=== PATIENT | female | born 1975 | race Caucasian/White ===

== ENCOUNTER 2016-12-12 12:34 | Outpatient (CLI) | payer OTHER ==
[2016-12-12 20:14] LABS: BASOPHILS % (AUTO) 0.2 %; EOSINOPHILS % (AUTO) 0.5 %; HCT - HEMATOCRIT 36.7 % (37.0-47.0); HGB - HEMOGLOBIN 11.4 g/dL (12.0-16.0); LYMPHOCYTES # (AUTO) 1.3 10^3/uL (1.5-3.5); LYMPHOCYTES % (AUTO) 23.9 %; MEAN CORPUSCULAR HEMOGLOBIN 23.3 pg (27.0-31.0); MEAN CORPUSCULAR HGB CONC 31.1 g/dL (32.0-36.0); MEAN CORPUSCULAR VOLUME 74.9 fL (81.0-99.0); MEAN PLATELET VOLUME 10.6 fL (7.9-10.8); MONOCYTES # (AUTO) 0.3 10^3/uL (0.0-1.0); MONOCYTES % (AUTO) 5.8 %; NEUTROPHILS # (AUTO) 3.8 10^3/uL (1.5-6.6); NEUTROPHILS % (AUTO) 69.6 %; NUCLEATED RED BLOOD CELLS AUTO 0.1 /100WBC; RED CELL DISTRIBUTION WIDTH 16.5 % (12.0-15.0); UNCORRECTED WHITE BLOOD COUNT 5.4 x10^3/uL; WHITE BLOOD COUNT 5.4 x10^3/uL (4.8-10.8)
[2016-12-12 20:36] LABS: ALBUMIN/GLOBULIN RATIO 1.2 (1.0-2.2); BILIRUBIN,TOTAL 0.4 mg/dL (0.2-1.0); BUN - BLOOD UREA NITROGEN 12 mg/dL (6-20); CALCIUM 8.7 mg/dL (8.5-10.3); CARBON DIOXIDE - CO2 26 mmol/L (21-32); CHLORIDE 105 mmol/L (101-111); CHOL/HDL RATIO 3.9 (<4.4); CHOLESTEROL 196 mg/dL; CREATININE 0.7 mg/dL (0.4-1.0); GFR - MDRD 91 (>89); GLUCOSE 90 mg/dL (70-100); HDL CHOLESTEROL 50 mg/dL; POTASSIUM 3.9 mmol/L (3.5-5.0); SODIUM 136 mmol/L (135-145); TOTAL PROTEIN 7.4 g/dL (6.7-8.2)
[2016-12-12 21:01] LABS: LDL/HDL RATIO 2.2 (<4.4); TRIGLYCERIDES 169 mg/dL; VLDL CHOLESTEROL 34 mg/dL
== END 2016-12-12 12:35 | disposition home or self-care (01) ==
LOC: LAB.WCP 12:34
PROVIDERS: ATTEND Physician Assistant Medical
DX: Z00.00 Encounter for general adult medical examination without abnormal findings (principal)
CPT/HCPCS: 36415; 80053; 80061; 84443; 85025

== ENCOUNTER 2018-03-25 08:00 | Outpatient (CLI) | payer OTHER ==
[2018-03-25 13:58] LABS: BASOPHILS % (AUTO) 0.1 %; EOSINOPHILS # (AUTO) 0.1 10^3/uL (0.0-0.7); EOSINOPHILS % (AUTO) 1.4 %; HGB - HEMOGLOBIN 11.2 g/dL (12.0-16.0); LYMPHOCYTES # (AUTO) 1.1 10^3/uL (1.5-3.5); LYMPHOCYTES % (AUTO) 30.3 %; MEAN CORPUSCULAR HEMOGLOBIN 24.2 pg (27.0-31.0); MEAN CORPUSCULAR HGB CONC 32.5 g/dL (32.0-36.0); MEAN CORPUSCULAR VOLUME 74.4 fL (81.0-99.0); MEAN PLATELET VOLUME 10.6 fL (7.9-10.8); MONOCYTES # (AUTO) 0.3 10^3/uL (0.0-1.0); MONOCYTES % (AUTO) 7.9 %; NEUTROPHILS # (AUTO) 2.2 10^3/uL (1.5-6.6); NEUTROPHILS % (AUTO) 60.3 %; PLT - PLATELET COUNT 185 10^3/uL (130-450); RED BLOOD COUNT 4.64 10^6/uL (4.20-5.40); RED CELL DISTRIBUTION WIDTH 16.8 % (12.0-15.0); WHITE BLOOD COUNT 3.7 x10^3/uL (4.8-10.8)
[2018-03-25 14:13] LABS: ALBUMIN 3.9 g/dL (3.2-5.5); ALBUMIN/GLOBULIN RATIO 1.2 (1.0-2.2); ALKALINE PHOSPHATASE 53 IU/L (42-121); ALT ALANINE AMINOTRANSFERASE 17 IU/L (10-60); AST ASPARTATE AMINOTRANSFERASE 15 IU/L (10-42); BILIRUBIN,TOTAL 0.4 mg/dL (0.2-1.0); BUN - BLOOD UREA NITROGEN 15 mg/dL (6-20); CARBON DIOXIDE - CO2 24 mmol/L (21-32); CHLORIDE 105 mmol/L (101-111); CHOL/HDL RATIO 3.9 (<4.4); CHOLESTEROL 217 mg/dL; CREATININE 0.7 mg/dL (0.4-1.0); GFR - MDRD 90 (>89); GLUCOSE 94 mg/dL (70-100); HDL CHOLESTEROL 55 mg/dL; LDL CHOLESTEROL,CALCULATED 137 mg/dL; LDL/HDL RATIO 2.5 (<4.4); SODIUM 138 mmol/L (135-145); TOTAL PROTEIN 7.2 g/dL (6.7-8.2); VLDL CHOLESTEROL 25 mg/dL
== END 2018-03-25 08:01 | disposition home or self-care (01) ==
LOC: LAB.WCP 08:00
PROVIDERS: ATTEND Physician Assistant Medical
DX: Z00.00 Encounter for general adult medical examination without abnormal findings (principal); E78.5 Hyperlipidemia, unspecified; E55.9 Vitamin D deficiency, unspecified; K21.9 Gastro-esophageal reflux disease without esophagitis
CPT/HCPCS: 36415; 80053; 80061; 82306; 83721; 84443; 85025

== ENCOUNTER 2018-07-16 10:54 | Outpatient (CLI) | payer OTHER ==
--- NOTE | 2018-07-16 12:05 | XRAY Report ---
Reason: COUGH WITH FEVER Procedure Date: 07/16/2018 Accession Number: [id number] / [id number] Procedure: WCP - Chest 2 View X-Ray CPT Code: 96871 FULL RESULT: EXAM: CHEST RADIOGRAPHY EXAM DATE: 07/16/2018 11:12 AM. CLINICAL HISTORY: COUGH WITH FEVER. COMPARISON: 08/11/2014 TECHNIQUE: 2 views. FINDINGS: Lungs/Pleura: No focal opacities evident. No pleural effusion. No pneumothorax. Normal volumes. Mediastinum: Heart and mediastinal contours are unremarkable. Other: Negative bony structures. Surgical clips upper abdomen. IMPRESSION: Normal 2-view chest radiography. RAD[facility]
== END 2018-07-16 10:55 | disposition home or self-care (01) ==
LOC: DI.WCP 10:54
PROVIDERS: ATTEND Family Medicine
DX: R05 Cough (principal); R50.9 Fever, unspecified
CPT/HCPCS: 71046; 87275; 87276

== ENCOUNTER 2018-07-16 11:18 | Outpatient (CLI) | payer OTHER | END 2018-07-16 23:59 | disposition home or self-care (01) | LOC: LAB.R 11:18 | PROVIDERS: ATTEND Family Medicine | DX: R05 Cough (principal) | CPT/HCPCS: 87275; 87276 ==

== ENCOUNTER 2019-09-17 07:50 | Outpatient (CLI) | payer OTHER ==
[2019-09-17 12:07] LABS: % IRON SATURATION 9 % (20-50); ALBUMIN 3.9 g/dL (3.2-5.5); ALBUMIN/GLOBULIN RATIO 1.1 (1.0-2.2); ALKALINE PHOSPHATASE 54 IU/L (42-121); ALT ALANINE AMINOTRANSFERASE 14 IU/L (10-60); AST ASPARTATE AMINOTRANSFERASE 17 IU/L (10-42); BILIRUBIN,TOTAL 0.4 mg/dL (0.2-1.0); BUN - BLOOD UREA NITROGEN 13 mg/dL (6-20); CALCIUM 8.4 mg/dL (8.5-10.3); CARBON DIOXIDE - CO2 26 mmol/L (21-32); CHLORIDE 103 mmol/L (101-111); CHOL/HDL RATIO 4.1 (<4.4); CHOLESTEROL 206 mg/dL; CREATININE 0.8 mg/dL (0.4-1.0); GLUCOSE 93 mg/dL (70-100); HDL CHOLESTEROL 50 mg/dL; IRON 33 ug/dL (28-170); LDL CHOLESTEROL,CALCULATED 127 mg/dL; LDL/HDL RATIO 2.5 (<4.4); SODIUM 135 mmol/L (135-145); TOTAL IRON BINDING CAPACITY 349 ug/dL (250-450); TOTAL PROTEIN 7.4 g/dL (6.7-8.2); TRANSFERRIN 249 mg/dL (192-382); VLDL CHOLESTEROL 29 mg/dL
[2019-09-17 12:17] LABS: FERRITIN 3.2 ng/mL (11.0-306.8)
[2019-09-17 12:22] LABS: EOSINOPHILS # (AUTO) 0.1 10^3/uL (0.0-0.7); EOSINOPHILS % (AUTO) 1.7 %; HGB - HEMOGLOBIN 11.7 g/dL (12.0-16.0); LYMPHOCYTES # (AUTO) 1.3 10^3/uL (1.5-3.5); LYMPHOCYTES % (AUTO) 30.7 %; MEAN CORPUSCULAR HEMOGLOBIN 24.2 pg (27.0-31.0); MEAN CORPUSCULAR HGB CONC 29.9 g/dL (32.0-36.0); MEAN CORPUSCULAR VOLUME 80.8 fL (81.0-99.0); MEAN PLATELET VOLUME 13.5 fL (7.9-10.8); MONOCYTES # (AUTO) 0.4 10^3/uL (0.0-1.0); MONOCYTES % (AUTO) 8.3 %; NEUTROPHILS # (AUTO) 2.5 10^3/uL (1.5-6.6); NEUTROPHILS % (AUTO) 59.1 %; PLT - PLATELET COUNT 187 10^3/uL (130-450); RED BLOOD COUNT 4.84 10^6/uL (4.20-5.40); WHITE BLOOD COUNT 4.2 x10^3/uL (4.8-10.8)
== END 2019-09-17 23:59 | disposition home or self-care (01) ==
LOC: LAB.WCP 07:50
PROVIDERS: ATTEND Physician Assistant Medical
DX: E78.5 Hyperlipidemia, unspecified (principal); R00.2 Palpitations; K76.0 Fatty (change of) liver, not elsewhere classified; D50.9 Iron deficiency anemia, unspecified; E03.9 Hypothyroidism, unspecified
CPT/HCPCS: 36415; 80053; 80061; 82607; 82728; 83540; 83721; 84443; 84466; 85025

== ENCOUNTER 2020-02-10 09:26 | Outpatient (CLI) | payer OTHER ==
--- NOTE | 2020-02-10 10:09 | XRAY Report ---
PROCEDURE: Chest 2 View X-Ray INDICATIONS: Preoperative risk assessment TECHNIQUE: 2 view(s) of the chest. COMPARISON: None. FINDINGS: Surgical changes and devices: None. Lungs and pleura: No pleural effusions or pneumothorax. Lungs are clear. Mediastinum: Mediastinal contours are normal. Heart size is normal. Bones and chest wall: No suspicious bony abnormalities. Soft tissues appear unremarkable. IMPRESSION: No acute cardiopulmonary process demonstrated. Reviewed by: Frankie Head MD on 02/10/2020 10:07 AM PDT Approved by: Frankie Head MD on 02/10/2020 10:07 AM PDT Station ID: [id number]
== END 2020-02-10 09:27 | disposition home or self-care (01) ==
LOC: LAB 09:26
PROVIDERS: ATTEND Surgery
DX: Z01.818 Encounter for other preprocedural examination (principal); D17.1 Benign lipomatous neoplasm of skin and subcutaneous tissue of trunk; Z20.828 Contact with and (suspected) exposure to other viral communicable diseases
CPT/HCPCS: 71046

== ENCOUNTER 2020-02-14 11:56 | Day surgery (SDC) | payer OTHER ==
[2020-02-14] MEDS ORDERED: LIDOCAINE-MPF 2% 5 ML VIAL IM ONE (11:57)
[2020-02-14] MEDS ORDERED: fentaNYL 100 MCG/2 ML VIAL IVP ONE (11:57)
[2020-02-14] MEDS ORDERED: ONDANSETRON 4 MG/2 ML VIAL IVP ONE (11:57)
[2020-02-14] MEDS ORDERED: DEXAMETHASONE 4 MG/ML VIAL IVP ONE (11:57)
[2020-02-14] MEDS ORDERED: PROPOFOL 200 MG/20 ML VIAL IVP ONE (11:57)
[2020-02-14] MEDS ORDERED: LACTATED RINGERS 1,000 ML IV ONE ×2 (12:21→15:22)
[2020-02-14] MEDS ORDERED: CEFAZOLIN SODIUM IN 0.9 % NACL 2 GM/100 ML BAG IV ONE (12:55)
[2020-02-14 12:57] LABS: HCG UR QUAL NEGATIVE
[2020-02-14] MEDS ORDERED: MORPHINE 2 MG/ML CARPUJECT IVP PRN (13:24)
[2020-02-14] MEDS ORDERED: ATROPINE ABBOJECT 1 MG/10 ML SYRINGE IVP PRN (13:24)
[2020-02-14] MEDS ORDERED: ONDANSETRON 4 MG/2 ML VIAL IVP PRN ×2 (13:24→15:28)
[2020-02-14] MEDS ORDERED: fentaNYL 100 MCG/2 ML VIAL IVP PRN (13:24)
[2020-02-14] MEDS ORDERED: ePHEDrine 50 MG/ML VIAL IVP PRN (13:24)
[2020-02-14] MEDS ORDERED: METOCLOPRAMIDE 10 MG/2 ML VIAL IVP PRN (13:24)
[2020-02-14] MEDS ORDERED: HYDROmorphone 0.5 MG/0.5 ML SYRINGE IVP PRN (13:24)
[2020-02-14] MEDS ORDERED: NALOXONE 0.4 MG/ML VIAL IVP PRN (13:24)
--- NOTE | 2020-02-14 13:27 | ANESTHESIA ---
Pre-Anesthesia VS, & Labs - Diagnosis lipoma right back - Procedure excision lipoma right back Vital Signs: Temp Pulse Resp BP Pulse Ox 36.5 C 86 20 153/95 H 98 02/14/20 12:33 02/14/20 12:33 02/14/20 12:33 02/14/20 12:33 02/14/20 12:33 Height 5 ft 6 in Weight (kg) 119.1 kg - NPO >8 hours - Is Patient ?: No Home Medications and Allergies Home Medications: Ambulatory Orders Escitalopram [Lexapro] 10 mg PO DAILY 02/08/20 Levothyroxine Sodium 50 mcg PO DAILY 02/08/20 Cholecalciferol (Vitamin D3) [Vitamin D] 2,000 unit PO DAILY 11/14/14 Omeprazole 20 mg PO BID 11/14/14 lisinopriL [Lisinopril] 10 mg PO DAILY 11/14/14 Escitalopram [Lexapro] 10 mg PO DAILY 02/08/20 Levothyroxine Sodium 50 mcg PO DAILY 02/08/20 Allergies/Adverse Reactions: Allergies Allergy/AdvReac Type Severity Reaction Status Date / Time hydrocodone bitartrate * AdvReac Intermediate Nausea/Somn Verified 11/14/14 08:17 [From Vicodin] olence Anes History & Medical History - Anesthetic History Anesthesia Complications: reports: Slow wake-up - Medical History Cardiovascular: reports: Hypertension, Other Pulmonary: reports: None Gastrointestinal: reports: GERD Urinary: reports: None Musculoskeletal: reports: Chronic back pain Endocrine/Autoimmune: reports: HyPOthyroidism Skin: reports: None - Surgical History General: Cholecystectomy Gynecologic: section, LEEP (Cervical surgery) Orthopedic: Other Exam General: Alert Dental: WNL Mouth Opening: Greater than 4 Fingerbreadths Neck Mobility: Normal Mallampati classification: I Thyromental Distance: greater than 6 cm Respiratory: Lungs clear Cardiovascular: Regular rate, Normal S1, Normal S2 Plan Anesthesia Type: General Consent for Procedure(s) Verified and Reviewed: Yes Code Status: Attempt Resuscitation ASA classification: 2-Mild systemic disease Is this case an emergency?: No
[2020-02-14] MEDS ORDERED: LIDOCAINE 1%-EPI 1:100000 20 ML MDV ONE (13:46)
[2020-02-14] MEDS ORDERED: BUPIVACAINE 0.5% PF 30 ML VIAL ONE (13:47)
[2020-02-14] MEDS ORDERED: LACTATED RINGERS 1,000 ML IV SCH (14:00)
[2020-02-14] MEDS ORDERED: LIDOCAINE 1%-EPI 1:100000 20 ML MDV SUBQ ONE ×2 (14:32)
[2020-02-14] MEDS ORDERED: BUPIVACAINE 0.5%-EPI 1:200000 PF 30 ML VIAL SUBQ ONE ×2 (14:32)
--- NOTE | 2020-02-14 15:24 | OPERATIVE REPORT ---
Operative Report - General Procedure Date: 02/14/20 Planned Procedure: Excision of painful mid back lipoma Pre-Op Diagnosis: Large, painful, mid back lipoma Procedure Performed: Excision of lipoma, mid back Post Op Diagnosis: Large, painful, mid back lipom - Procedure Note Primary Surgeon: Elida Anesthesia Provider: GUALBERTO Rosa Anesthesia Technique: General LMA, Local Pathology: 6 x 4 cm lipoma Estimated Blood Loss (mL): 5 Findings: Fluffy, poorly circumscribed and multilobulated mass densely adherent to paraspinous muscle. Complications: None apparent - Other Other Information/Narrative: After obtaining informed consent, the patient is brought to the operating room and placed in the supine position on a beanbag on the operating table. Following successful induction of general anesthesia, the patient was rolled to the left lateral decubitus position exposing the area of concern. All bony prominences were padded and care was taken to be sure there were no untreated pressure points. The back was then prepped and draped in the standard surgical fashion. A timeout was held per scope protocol. All elements of the surgical safety checklist were followed before, during, and after the procedure. We began by infiltrating a mixture of local anesthetics directly over the palpable mass in the mid back and to the right of the palpable spine. We then created a vertical incision approximately 7 cm long and carried through the skin and subcutaneous tissue. We immediately encountered a multilobulated, pale and fluffy appearing mass consistent with a lipoma. It was fairly poorly circumscribed. It was also notably densely adherent to the underlying paraspinous muscle. Excision was carried out sharply. The specimen measured 6 x 4 cm once it was removed. The wound was then checked for hemostasis. This was obtained with Bovie cautery applied to the neurovascular bundle. Wound was then checked once again and then closed in 2 layers with Vicryl and Monocryl sut ure. All sponge, needle, and instrument counts were correct at the conclusion of the case. The patient was allowed awaken from anesthesia without difficulty and taken to the postanesthesia care unit in good condition.
[2020-02-14] MEDS ORDERED: oxyCODONE 5 MG TABLET PO PRN (15:28)
[2020-02-14] MEDS ORDERED: ACETAMINOPHEN 325 MG TABLET PO PRN (15:28)
[2020-02-14] MEDS ORDERED: IBUPROFEN 600 MG TABLET PO PRN (15:28)
[2020-02-14 16:12] VITALS: BP 149/70
== END 2020-02-14 11:57 | disposition home or self-care (01) ==
LOC: SDS 11:56
PROVIDERS: ATTEND Surgery
PROC: 0JB70ZZ Excision of Back Subcutaneous Tissue and Fascia, Open Approach (ICD-10-PCS; principal; 2020-02-14 13:00)
DX: D17.1 Benign lipomatous neoplasm of skin and subcutaneous tissue of trunk (principal); I10 Essential (primary) hypertension; E66.9 Obesity, unspecified; Z68.41 Body mass index [BMI] 40.0-44.9, adult
CPT/HCPCS: 21933; 81025; A9270; J0690; J7120

== ENCOUNTER 2020-07-19 06:40 | Outpatient (CLI) | payer OTHER ==
--- NOTE | 2020-07-19 11:15 | Ultrasound Report ---
PROCEDURE: Head or Neck Soft Tissue INDICATIONS: SUPRACLAVICULAR LYMPHADENOPATHY TECHNIQUE: Real time scanning was performed of the neck region of interest, with image documentation . COMPARISON: Chest plain film 02/10/2020. FINDINGS: Targeted scanning to the area of current clinical concern. At the area of concern there is a lymph node measuring up to 1.0 x 0.8 x 0.6 cm. IMPRESSION: Single lymph node measuring 6 x 8 x 10 mm, at the site of current clinical concern. If unusual tenderness or continued growth of this structure develops follow-up by contrast-enhanced CT o r MR scanning may be warranted. Reviewed by: Harinder Tomas MD on 07/19/2020 11:13 AM PST Approved by: Harinder Tomas MD on 07/19/2020 11:13 AM PST Station ID: [id number]
== END 2020-07-19 06:41 | disposition home or self-care (01) ==
LOC: DI 06:40
PROVIDERS: ATTEND Nurse Practitioner Family
DX: R59.0 Localized enlarged lymph nodes (principal)

== ENCOUNTER 2020-07-27 16:08 | Outpatient (CLI) | payer OTHER ==
[2020-07-27 16:20] LABS: CALCIUM 8.9 mg/dL (8.5-10.3); CREATININE 0.7 mg/dL (0.4-1.0); POTASSIUM 3.9 mmol/L (3.5-5.0)
[2020-07-27] MEDS ORDERED: IOVERSOL 320 100 ML VIAL IVP ONE ×2 (16:53→18:41)
--- NOTE | 2020-07-27 18:21 | CT Report ---
PROCEDURE: SOFT TISSUE NECK W INDICATIONS: SUPRACLAVICULAR CERVICAL LYMPHADENOPATHY CONTRAST: 100 cc Isovue 320 TECHNIQUE: After the administration of intravenous contrast, 3.0 mm axial sections acquired from the sella to th e aortic arch. Additional oblique axial 3.0 mm sections acquired through the pharynx. 3 mm thick co jospeh reformats were generated. For radiation dose reduction, the following was used: automated exp osure control, adjustment of mA and/or kV according to patient size. COMPARISON: Correlation is made with the prior neck ultrasound, 07/19/2020. FINDINGS: Image quality: Excellent. Lymph nodes: At the area of clinical concern within the right supraclavicular region, there is a none nlarged, normal-appearing lymph node seen, as on series 3 image 73 measuring 9 x 6 mm. An additional borderline prominent lymph nodes can be seen within the same region, as on series 3 image 84 measurin g 12 x 7 mm. Borderline prominent lymph nodes are also seen elsewhere within the neck, without lymph node enlargement. Vessels: Visualized vasculature appears patent. Neck spaces: The oropharynx, nasopharynx, and pharynx demonstrate no mucosal lesions. The vocal cor ds, false vocal cords, pyriform sinuses, epiglottis, vallecula, and tongue base all appear normal. E xtramucosal spaces appear unremarkable. Glands: The parotid and submandibular glands appear normal. The thyroid is normal in size. Miscellaneous: Visualized brain and orbits appear normal. Lung apices appear clear. Superficial so ft tissues appear normal. Bones: No suspicious bony lesions. Visualized sinuses and mastoids appear unremarkable. IMPRESSION: There are 2 borderline prominent lymph nodes seen at the area of clinical concern within the right pedersen praclavicular region. Elsewhere within the neck, borderline prominent lymph nodes are also seen, yet without eulalia enlargem ent. If these lymph nodes do not resolve clinically, please consider a follow-up ultrasound or CT in 6-8 w eeks. Reviewed by: Ramses Tejada MD on 07/27/2020 5:20 PM [place] Approved by: Ramses Tejada MD on 07/27/2020 5:20 PM [place] Station ID: [id number]
== END 2020-07-27 16:09 | disposition home or self-care (01) ==
LOC: LAB 16:08
PROVIDERS: ATTEND Physician Assistant Medical
DX: I10 Essential (primary) hypertension (principal); R59.0 Localized enlarged lymph nodes; R00.2 Palpitations
CPT/HCPCS: 36415; 70491; 80048; Q9967

== ENCOUNTER 2021-04-04 15:10 | Outpatient (CLI) | payer OTHER, BC ==
--- NOTE | 2021-04-04 16:56 | Ultrasound Report ---
PROCEDURE: Head or Neck Soft Tissue INDICATIONS: THYROMEGALY TECHNIQUE: Real time scanning was performed of the neck region of interest, with image documentation . COMPARISON: None. FINDINGS: Right lobe of thyroid measures 5.4 x 2.9 x 2.4 cm. The left lobe of the thyroid measures 5. 2 x 2.1 x 1.7 cm. Isthmus measures 3 mm. Both lobes of thyroid of the straight heterogeneous echotexture without discre te nodule. IMPRESSION: Heterogeneous, enlarged thyroid. Please correlate clinically and with biochemical data. Reviewed by: Torin Liang MD on 04/04/2021 4:55 PM PDT Approved by: Torin Liang MD on 04/04/2021 4:55 PM PDT Station ID: [id number]
== END 2021-04-04 15:11 | disposition home or self-care (01) ==
LOC: DI 15:10
PROVIDERS: ATTEND Physician Assistant Medical
DX: E01.0 Iodine-deficiency related diffuse (endemic) goiter (principal)

== ENCOUNTER → 2021-05-20 | Outpatient (CLI) | payer OTHER, BC ==
--- NOTE | 2021-05-20 16:01 | XRAY Report ---
PROCEDURE: Knee 3 View RT INDICATIONS: ATRAUMATIC RIGHT KNEE PAIN TECHNIQUE: 3 views of the right knee(s) were acquired. COMPARISON: None. FINDINGS: Bones: No fractures or dislocations. Degenerative changes with tricompartmental osteophytes. Mild me dial joint space narrowing. No suspicious bony lesions. Soft tissues: There is a suprapatellar joint effusion. No suspicious soft tissue calcifications. IMPRESSION: 1. Mild tricompartmental degenerative changes. 2. Suprapatellar joint effusion possibly due to internal derangement. Consider MRI of the right knee. . Reviewed by: Archie Heart on 05/20/2021 3:00 PM LESLYE Approved by: Archie Heart on 05/20/2021 3:00 PM [facility] Station ID: [id number]
== END ==
LOC: DI.N 12:42
PROVIDERS: ATTEND Physician Assistant Medical
DX: S83.91XA Sprain of unspecified site of right knee, initial encounter (principal); M17.11 Unilateral primary osteoarthritis, right knee; M25.461 Effusion, right knee

== ENCOUNTER 2021-08-24 07:39 | Outpatient (CLI) | payer OTHER, BC ==
[2021-08-24 08:03] LABS: EOSINOPHILS # (AUTO) 0.1 10^3/uL (0.0-0.7); EOSINOPHILS % (AUTO) 1.8 %; HGB - HEMOGLOBIN 10.8 g/dL (12.0-16.0); LYMPHOCYTES # (AUTO) 1.4 10^3/uL (1.5-3.5); LYMPHOCYTES % (AUTO) 30.7 %; MEAN CORPUSCULAR HEMOGLOBIN 21.7 pg (27.0-31.0); MEAN CORPUSCULAR VOLUME 72.4 fL (81.0-99.0); MONOCYTES # (AUTO) 0.4 10^3/uL (0.0-1.0); MONOCYTES % (AUTO) 8.6 %; NEUTROPHILS # (AUTO) 2.6 10^3/uL (1.5-6.6); NEUTROPHILS % (AUTO) 58.4 %; PLT - PLATELET COUNT 210 10^3/uL (130-450); RED BLOOD COUNT 4.97 10^6/uL (4.20-5.40); WHITE BLOOD COUNT 4.4 x10^3/uL (4.8-10.8)
[2021-08-24 08:23] LABS: ALBUMIN 4.2 g/dL (3.2-5.5); ALBUMIN/GLOBULIN RATIO 1.6 (1.0-2.2); ALKALINE PHOSPHATASE 49 IU/L (42-121); ALT ALANINE AMINOTRANSFERASE 15 IU/L (10-60); AST ASPARTATE AMINOTRANSFERASE 15 IU/L (10-42); BILIRUBIN,TOTAL 0.4 mg/dL (0.2-1.0); BUN - BLOOD UREA NITROGEN 11 mg/dL (6-20); CALCIUM 8.4 mg/dL (8.5-10.3); CARBON DIOXIDE - CO2 23 mmol/L (21-32); CHLORIDE 101 mmol/L (101-111); CHOL/HDL RATIO 3.4 (<4.4); CHOLESTEROL 201 mg/dL; CREATININE 0.7 mg/dL (0.4-1.0); GFR - MDRD 89 (>89); GLUCOSE 103 mg/dL (70-100); HDL CHOLESTEROL 60 mg/dL; LDL CHOLESTEROL,CALCULATED 123 mg/dL; LDL/HDL RATIO 2.1 (<4.4); POTASSIUM 3.9 mmol/L (3.5-5.0); SODIUM 136 mmol/L (135-145); TOTAL PROTEIN 6.9 g/dL (6.7-8.2); TRIGLYCERIDES 90 mg/dL; VLDL CHOLESTEROL 18 mg/dL
[2021-08-24 08:34] LABS: THYROID STIMULATING HORMONE 4.23 uIU/mL (0.34-5.60)
== END 2021-08-24 07:40 | disposition home or self-care (01) ==
LOC: LAB 07:39
PROVIDERS: ATTEND Physician Assistant Medical
DX: E78.5 Hyperlipidemia, unspecified (principal); E03.9 Hypothyroidism, unspecified; D50.9 Iron deficiency anemia, unspecified
CPT/HCPCS: 36415; 80053; 80061; 83721; 84443; 85025

== ENCOUNTER 2022-03-12 20:32 | Emergency (ER) | payer BC ==
[2022-03-12 21:03] VITALS: BP 179/95
--- NOTE | 2022-03-12 21:24 | ED Physician Documentation ---
History of Present Illness - Stated complaint Stated Complaint: HIGH BP - Chief complaint Chief Complaint: General - History obtained from History obtained from: Patient - History of Present Illness Timing: Prior to arrival - Additonal information Additional information: 47-year-old female with history of hypertension presents for evaluation of hypertension. Patient states that she is going on a cruise the end of the month with her family and she went to an [facility] to request a medication that would stop her menstrual cycle. She states that at the appointment her blood pressure was elevated and the physician there told her that with her blood pressure elevated she could not give her this medication. She started her on 2.5 mg of amlodipine and she went home. Patient states that she took her first dose of amlodipine tonight at 1800, however her blood pressure continued to be elevated. She was concerned because she has been told in the past that elevated blood pressure readings can lead to stroke and so presented for evaluation. Patient has 0 symptoms at this time, she denies headache, blurred vision, chest pain, shortness of breath, leg swelling, abdominal pain, any other complaints at this time. Review of Systems Ten Systems: 10 systems reviewed and negative Constitutional: denies: Fever, Chills Eyes: denies: Loss of vision, Decreased vision Cardiac: denies: Chest pain / pressure, Palpitations, Calf pain Respiratory: denies: Dyspnea, Cough, Wheezing GI: denies: Abdominal Pain, Nausea, Vomiting Musculoskeletal: denies: Neck pain, Back pain Neurologic: denies: Generalized weakness, Focal weakness, Headache PD PAST MEDICAL HISTORY - Past Medical History Cardiovascular: Hypertension, Other Respiratory: None Endocrine/Autoimmune: HyPOthyroidism GI: GERD : None HEENT: Chronic vision loss Psych: Depression, Anxiety Musculoskeletal: Chronic back pain Derm: None - Past Surgical History General: Cholecystectomy Ortho: Other /[employer]: section, LEEP (Cervical surgery) - Present Medications Home Medications: Ambulatory Orders Medication Instructions Recorded Confirmed Cholecalciferol (Vitamin D3) 2,000 unit PO DAILY 11/14/14 02/14/20 [Vitamin D] Omeprazole 20 mg PO BID 11/14/14 02/14/20 lisinopriL [Lisinopril] 10 mg PO DAILY 11/14/14 02/14/20 Escitalopram [Lexapro] 10 mg PO DAILY 02/08/20 02/14/20 Levothyroxine Sodium 50 mcg PO DAILY 02/08/20 02/14/20 Ondansetron Odt [Zofran Odt] 4 mg TL Q6H PRN #10 tablet 02/14/20 oxyCODONE [Roxicodone] 5 mg PO Q4-6H PRN #10 tablet 02/14/20 - Allergies Allergies/Adverse Reactions: Allergies Allergy/AdvReac Type Severity Reaction Status Date / Time hydrocodone bitartrate * AdvReac Intermediate Nausea/Somn Verified 03/12/22 21:03 [From Vicodin] olence PD ED PE NORMAL - Vitals Vital signs reviewed: Yes - General General: Alert and oriented X 3, No acute distress, Well developed/nourished - HEENT HEENT: Atraumatic, PERRL, EOMI - Cardiac Cardiac: RRR, Strong equal pulses - Respiratory Respiratory: No respiratory distress, Clear bilaterally - Abdomen Abdomen: Soft, Non tender, Non distended - Back Back: No CVA TTP, No spinal TTP - Derm Derm: Normal color, Warm and dry, No rash - Extremities Extremities: No deformity, Normal ROM s pain, No edema - Neuro Neuro: Alert and oriented X 3, account resolution expert 2-12 intact, Normal speech - Psych Psych: Normal mood, Normal affect Results - Vitals Vitals: Vital Signs - 24 hr 03/12/22 21:01 Temperature 36.0 C L Heart Rate 67 Respiratory 18 Rate Blood Pressure 179/95 H O2 Saturation 100 Oxygen O2 Source Room air PD MEDICAL DECISION MAKING - ED course Complexity details: reviewed results, re-evaluated patient, considered differential, d/w patient ED course: Patient with asymptomatic hypertension. Patient's medical list reviewed with her, she is on the minimum doses of both lisinopril and amlodipine, in addition she only took her first dose of amlodipine barely 2 hours prior to arrival. Patient has absolutely no signs or symptoms of endorgan damage, no indication for further work-up in the emergency department. Patient was counseled on how she may gradually increase the doses of her current antihypertensives. She was counseled to keep a blood pressure diary and to follow-up with her primary care physician for further management of her blood pressure. Patient expressed understanding of plan and is in agreement at this time. All questions answered at the time of discharge. Departure - Departure Disposition: 01 Home, Self Care Clinical Impression: Hypertension Condition: Stable Instructions: Hypertension Dc Comments: Lisinopril 10mg by mouth once daily starting dose can in crease by 10mg daily (10mg -> 20mg -> 30mg -> 40mg) maximum dose 40mg by mouth once daily Amlodipine 2.5mg by mouth once daily starting dose can increase to 5mg by mouth once daily maximum dose 10mg once daily Discharge Date/Time: 03/12/22 21:33
== END 2022-03-12 21:33 | disposition home or self-care (01) ==
LOC: ED 20:32
DX: I10 Essential (primary) hypertension (principal)
CPT/HCPCS: 99282; 99283

== ENCOUNTER 2022-10-14 07:45 | Outpatient (CLI) | payer BC ==
[2022-10-14 12:08] LABS: % IRON SATURATION 7 % (20-50); CHOL/HDL RATIO 4.2 (<4.4); CHOLESTEROL 212 mg/dL; HDL CHOLESTEROL 51 mg/dL; IRON 27 ug/dL (28-170); LDL CHOLESTEROL,CALCULATED 143 mg/dL; LDL/HDL RATIO 2.8 (<4.4); TOTAL IRON BINDING CAPACITY 370 ug/dL (250-450); TRANSFERRIN 264 mg/dL (192-382); TRIGLYCERIDES 91 mg/dL; VLDL CHOLESTEROL 18 mg/dL
[2022-10-14 12:11] LABS: THYROID STIMULATING HORMONE 4.95 uIU/mL (0.34-5.60)
[2022-10-14 12:15] LABS: FERRITIN 1.9 ng/mL (11.0-306.8)
[2022-10-15 12:48] LABS: CALCIUM 8.6 mg/dL (8.5-10.3); CREATININE 0.8 mg/dL (0.4-1.0); POTASSIUM 4.1 mmol/L (3.5-5.0)
== END 2022-10-14 07:46 | disposition home or self-care (01) ==
LOC: LAB.N 07:45
PROVIDERS: ATTEND Physician Assistant Medical
DX: E78.5 Hyperlipidemia, unspecified (principal); B35.4 Tinea corporis; E03.9 Hypothyroidism, unspecified; D50.9 Iron deficiency anemia, unspecified; I10 Essential (primary) hypertension
CPT/HCPCS: 36415; 80048; 80061; 82728; 83540; 83721; 84443; 84466